=== PATIENT | male | born 1995 | race Caucasian/White ===

== ENCOUNTER 2023-08-22 21:11 | Emergency (ER) | payer BC, SELFPAY ==
[2023-08-22 21:31] VITALS: BP 147/84; PULSE 76; RESP 18; TEMP 37.3; O2SAT 98; BMI 31.6
--- NOTE | 2023-08-22 21:47 | ED.GENADULT ---
HPI - General Adult General Chief complaint: Sore Throat Stated complaint: Pain in tonsils Time Seen by Provider: 08/22/23 21:41 Source: patient Mode of arrival: ambulatory Limitations: no limitations History of Present Illness HPI narrative: patient is a 27-year-old male coming in today complaining of a sore throat for 2 weeks. He states that he was seen in a couple days after his symptoms started and he was placed on amoxicillin. He feels that this did not make any changes to his symptoms. He states that he was not swabbed for strep or tested for anything else at that appointment. He denies fevers or chills. No difficulty breathing or swallowing. He states that the sore throat is bilateral and is worse 1st thing in the morning. Gets better throughout the day and then gets worse again when he lays down at night. He denies any drainage from his throat, no congestion, no runny nose. He does snore. Patient tells me he does have a history of GERD, He does not take any medications for it. Related Data Home Medications Medication Instructions Recorded Confirmed albuterol sulfate 90 mcg/actuation 1 - 2 puff inhalation Q4H PRN 08/22/23 08/22/23 aerosol inhaler wheezing fluticasone propionate 50 1 - 2 spray intranasal DAILY 08/22/23 08/22/23 mcg/actuation nasal spray,suspension Allergies Allergy/AdvReac Type Severity Reaction Status Date / Time No Known Drug Allergies Allergy Verified 08/22/23 21:36 Review of Systems Status of ROS: Reports: 10 or more systems reviewed and unremarkable except as noted in History and below PFSH [facility] Social History Non-prescribed substance use: denies use Exam Narrative: Exam Narrative: Well-nourished well-developed patient in no acute distress. Alert and oriented. Answers questions appropriately. Mood and affect are appropriate. Thoughts are goal oriented and rational. No tangential or magical thinking noted. Patient speaks in full sentences without needing to catch His breath. voice sounds normal. He is not congested. HEENT: Normocephalic atraumatic. Pupils are equally round reactive to light. Extraocular muscles are intact. Conjunctivae are moist without any icterus noted. Moist mucous membranes. Posterior pharynx is normal. Neck is soft without any lymphadenopathy or thyromegaly. No masses are appreciated. Cardiovascular: Heart is regular rate and rhythm . Skin: Well perfused without any obvious rashes. Const: Vital Signs, click to edit/add: Vital Signs - 24 hr 08/22/23 21:31 Temperature 99.1 F Pulse Rate [Pulse Oximeter] 76 Respiratory Rate 18 Blood Pressure [Ri ght Upper Arm] 147/84 H Pulse Oximetry 98 Oxygen Delivery Me thod Room Air Course Course ED Course: Discussed with the patient that I do believe his symptoms are likely due to either GERD or his snoring. I do not see any evidence of infection on examination. Patient is quite concerned that it is infection he would like a strep swab. So this was obtained. He does not want wait for his results so he asked us to call him. In the meantime we did have a discussion about starting a daily omeprazole, following with a sleep study of this is not helping. Patient had no other questions or concerns. Vital Signs Vital signs: Initial Vital Signs Temperature 99.1 F 08/22/23 21:31 Temperature Source Temporal Artery Scan 08/22/23 21:31 Pulse Rate 76 08/22/23 21:31 Respiratory Rate 18 08/22/23 21:31 Blood Pressure 147/84 H 08/22/23 21:31 Blood Pressure Mean 105 08/22/23 21:31 Blood Pressure Position Sitting 08/22/23 21:31 Pulse Oximetry 98 08/22/23 21:31 Oxygen Delivery Method Room Air 08/22/23 21:31 Vital Signs Temperature 99.1 F 08/22/23 21:31 Pulse Rate 76 08/22/23 21:31 Respiratory Rate 18 08/22/23 21:31 Blood Pressure 147/84 H 08/22/23 21:31 Pulse Oximetry 98 08/22/23 21:31 Oxygen Delivery Method Room Air 08/22/23 21:31 Temperature 99.1 F 08/22/23 21:31 Pulse Rate 76 08/22/23 21:31 Respiratory Rate 18 08/22/23 21:31 Blood Pressure 147/84 H 08/22/23 21:31 Pulse Oximetry 98 08/22/23 21:31 Oxygen Delivery Method Room Air 08/22/23 21:31 Medical Decision Making MDM Narrative Medical decision making narrative: 27-year-old male with sore throat. We discussed GERD and snoring could cause sore throat. I would like for him start taking a daily omeprazole. If he is not seeing a difference in approximately 1-2 weeks I recommend he do a sleep study. In the event he develops fevers he should return to the ER. In the meantime strep swab was obtained we will call him with the results. Lab Data Labs: Lab Results 08/22/23 Range/Units 21:47 Group A Strep DNA NOT DETECTED (Not Detectd) Discharge Plan Discharge Clinical Impression: Sore throat Patient Disposition: Home, Self-Care Condition: Stable Additional Instructions: sore throat could be caused by many different things. In your case I think it could be secondary to gastric reflux or GERD. Recommend you start taking a daily omeprazole. You should see a difference in your throat symptoms in approximately 7-10 days. If you develop a fever you should return to the emergency room for evaluation. If you are not feeling better in approximately 1 week, recommend you follow-up with your primary care provider to discuss doing a sleep study to see if your snoring is contributing to your symptoms. We will call you with the results of your strep swab once they return. Prescriptions: No Action albuterol sulfate 90 mcg/actuation HFA aerosol inhaler 1 - 2 puff INHALATION Q4H PRN (Reason: wheezing) fluticasone propionate 50 mcg/actuation spray,suspension 1 - 2 spray INTRANASAL DAILY Stand Alone Forms: [employer] Info Instructions
--- NOTE | 2023-08-22 22:14 | PC.NURSE ---
DC instructions reviewed with patient, no further questions. patient DC ambulatory RR even and unlabored
[2023-08-22 22:26] LABS: Strep A DNA Probe* NOT DETECTED (Not Detectd)
--- NOTE | 2023-08-23 00:11 | PC.NURSE ---
strep results called to patient
== END 2023-08-22 22:02 | disposition home or self-care (01) ==
PROVIDERS: Emergency Provider Family Medicine
DX: J02.9 Acute pharyngitis, unspecified (principal)
CPT/HCPCS: 87651; 99283